=== PATIENT | male | born 1960 | race Caucasian/White ===

== ENCOUNTER 2023-09-13 07:42 | Emergency (ER) | payer OTHER, SELFPAY ==
[2023-09-13 08:00] VITALS: BP 171/102
--- NOTE | 2023-09-13 08:32 | ED.GENMED ---
History of Present Illness
General
Chief Complaint: Abdominal Pain
Source: patient
Exam Limitations: none
Time Seen by Provider: 09/13/23 08:13
Travel History
Have you had any contact with someone who has COVID-19?: No
Do you have any symptoms of coronavirus? Fever > 100 degrees, chills, cough, shortness of breath, sore throat, loss of taste or smell, muscle aches, or headache?: No
History of Present Illness
History of Present Illness:
See MDM
Past History
Past History
ED Past Medical History: Other (IBS)
ED Past Surgical History: Urological
Social History
Tobacco: Non-smoker
Alcohol: None
Drug: None
Personal:
Living: with family
Phy Exam
Physical Exam
Physical Exam:
See MDM
Course
Orders/Labs/Results
Orders:
Orders
09/13/23 08:29
CT Abd/pelvis W Iv Cont Urgent
Comment:
Reason For Exam: lower mid abd pain
09/13/23 08:32
Complete Blood Count/With Diff Urgent
Comprehensive Metabolic Panel Urgent
09/13/23 09:30
Urinalysis Reflex To Culture Urgent
Date Specimen was Collected: 09/13/23
Time Specimen was Collected: 09:27
Abnormal Lab Results
09/13/23 09/13/23
08:32 09:30
Lymphocytes % 18.8 L %
(20.5-51.1)
Glucose 131 H mg/dl
(70-99)
Urine Ketones 1+ A
(Negative)
09/13/23 08:32
09/13/23 08:32
Vital Signs
Initial and Last Documented VS:
Initial Vital Signs
Temp Pulse Resp BP Pulse Ox
98.0 F 103 20 171/102 96
09/13/23 08:00 09/13/23 08:00 09/13/23 08:00 09/13/23 08:00 09/13/23 08:00
Last Documented Vital Signs
Temp Pulse Resp BP Pulse Ox
98.0 F 103 20 171/102 96
09/13/23 08:00 09/13/23 08:00 09/13/23 08:00 09/13/23 08:00 09/13/23 08:00
MDM/Problems Addressed
Differential Diagnosis Includes:
HPI and MDM Narrative:
63-year-old male presenting with vague lower abdominal pain. Patient states symptoms have been going on for couple weeks. He saw his PCP and they ordered a CT scan but patient states he cannot get it done for several weeks. He is now noticing
mild pain in his testicles.
On exam, he is well-appearing nontoxic. No inguinal hernia palpated. He has incisional hernia in is umbilicus. He states he had recent prostatectomy a few months ago. He denies urinary symptoms
Physical exam
General: Well appearing and non-toxic
HEENT: protecting airway
Neck: appears supple
CV: No evidence of cyanosis
Resp: No accessory muscle use
Abd: Non-distended. Incisional umbilical hernia. No incarceration or strangulation
: No inguinal hernia or testicle mass palpated
Extremities: No deformities
Neuro: alert
Psych: Normal affect
Skin: Intact
Problems Addressed including Acute and Chronic Conditions affecting care:
1. Abdominal pain
Acuity: acute
Prognosis: stable
Details: Given ongoing symptoms, will obtain CT
Updates
CT negative for acute pathology. Discussed return precautions and follow-up with PCP. If symptoms persist, discussed follow-up with GI
Differential Diagnosis (but not limited to): Constipation, inguinal hernia, colitis
Testing considered: EKG
Drug therapy (if applicable): OTC meds, please see d/c instruction regarding Rx drugs
Amount and/or Complexity of Data Reviewed
Clinical info obtained from: Patient
External data reviewed: N/A
Labs I independently reviewed (but not limited to): LFTs within normal limits
Radiology: The CT scan was personally and independently reviewed. In addition, official CT report reviewed.
Pulse Ox: not hypoxic
EKG independently reviewed: N/A
Biomed Tech: N/A
Critical Care: N/A
Risk of Complication:
Social Determinants of health: Good social support
Discussed with other providers: N/A
Escalation of Care includes Admit/Obs: After being observed in the Emergency Department, pt stable for discharge.
Occasional wrong word or 'sound a like' substitutions may have occurred due to the inherent limitations of voice recognition software. Read the chart carefully and recognize, using context, where substitutions have occurred.
*Critical Care Note
Total Time (30-74mins, 75-104mins- exclusive of procedures): Not Applicable
ED Attending Note
-
Portions of this chart may have been created with voice recognition software.� Occasional wrong word or��sound alike� substitutions may have occurred due to the inherent limitations of voice recognition software.
Discharge Plan
Departure
Patient Disposition: Home (Routine Discharge)
Date of Disposition: 09/13/23
Time of Disposition: 10:12
Patient with high blood pressure during this ER visit?: Yes
Discharge Problem:
Abdominal pain
Instructions: Abdominal Pain, BLOOD PRESSURE
Prescriptions:
No Action
amlodipine 10 mg Tablet
10 mg PO DAILY
valsartan 320 mg Tablet
320 mg PO DAILY
rosuvastatin [Crestor] 10 mg Tablet
10 mg PO DAILY
naproxen sodium [Aleve] 220 mg tablet
440 mg PO BID PRN (Reason: pain) Qty: 1 0RF
tramadol 50 mg tablet
50 mg PO TID PRN (Reason: severe pain) Qty: 10 0RF
triamcinolone acetonide 0.1 % cream
1 applic topical BID 7 Days Qty: 30 0RF
methylprednisolone [Medrol ([place])] 4 mg tablets,dose pack
See Rx Instructions .ROUTE .COMPLEX Qty: 21 0RF
Rx Instructions:
orally per package directions
Referrals:
Adela Aguilar DO [Family Provider] -
Activity Restrictions/Additional Instructions:
Please return for any worsening symptoms.
You may return at any time if you have further concerns.
Please follow up with your doctor at the first available appointment, preferably this week.
Thank you for choosing [facility].
Interventions
Interventions:
*Risk Screen - Suicide Last Done: 09/13/23 08:24
*General Assessment Last Done: 09/13/23 08:24
*Neglect/Abuse Screening Last Done: 09/13/23 08:24
ED- Fall Risk Assessment Last Done: 09/13/23 08:24
*ED COVID-19 Vaccine History Last Done: 09/13/23 08:24
[facility]otmvqy[facility] Assessment Last Done: 09/13/23 08:24
Discharge Date and Time
Print Language: BURUNDIAN
[2023-09-13 08:39] LABS: % Basophils 0.6 % (0-2); % Eosinophils 0.5 % (0-6); % Immature Granulocytes 0.3 % (0-0.5); % Lymphocytes 18.8 % (20.5-51.1); % Neutrophils 72.8 % (42.2-75.2); Absolute Lymphocytes 1.2 10^3/uL (1.2-3.4); Absolute Monocytes 0.4 10^3/uL (0.1-0.6); Absolute Neutrophils 4.5 10^3/uL (1.4-6.5); Hematocrit 46.1 % (39.0-52.0); Hemoglobin 15.7 g/dL (13.0-18.0); Mean Corp Hgb Conc. 34.1 g/dL (33.0-37.0); Mean Corpuscular Hgb 29.6 pg (27.0-31.0); Mean Corpuscular Volume 86.8 fL (80.0-94.0); Mean Platelet Volume 9.9 fL (7.4-10.4); Nucleated Red Blood Cells % 0 % (-); Platelet Count 213 10^3/uL (130-400); Red Blood Cell Count 5.31 10^6/uL (4.70-6.10); Red Cell Dist. Width 12.8 % (11.5-14.5); White Blood Cell Count 6.2 10^3/uL (4.8-10.8)
[2023-09-13 09:00] LABS: ALT (SGPT) 21 U/L (0-50); AST (SGOT) 26 U/L (17-59); Albumin 4.4 g/dl (3.5-5.0); Alkaline Phosphatase 99 U/L (38-126); Blood Urea Nitrogen 12 mg/dl (9-20); Calcium 9.7 mg/dl (8.4-10.2); Carbon Dioxide 23 mmol/L (22-30); Chloride 107 mmol/L (98-107); Glucose 131 mg/dl (70-99); Potassium 3.8 mmol/L (3.5-5.1); Sodium 139 mmol/L (135-145); Total Bilirubin 1.2 mg/dl (0.2-1.3); Total Protein 7.1 g/dl (6.3-8.2); eGFR > 60.00
[2023-09-13 09:38] LABS: Urine Albumin Trace (Neg - Trace); Urine Bilirubin Negative (Negative); Urine Character Clear (Clear); Urine Color Yellow; Urine Glucose Negative (Negative); Urine Ketone 1+ (Negative); Urine Leukocyte Negative (Negative); Urine Nitrite Negative (Negative); Urine Occult Blood Negative (Negative); Urine Urobilinogen Negative (Neg - 1+)
== END 2023-09-13 10:31 | disposition home or self-care (01) ==
LOC: EMR 07:42
PROVIDERS: EMERGENCY PHYSICIAN Student in an Organized Health Care Education/Training Program; FAMILY PHYSICIAN Family Medicine
DX: R10.30 Lower abdominal pain, unspecified (principal); K43.2 Incisional hernia without obstruction or gangrene; I10 Essential (primary) hypertension
CPT/HCPCS: 99285; 74177; 80053; 81003; 85025; Q9967

== ENCOUNTER 2023-11-16 01:30 | Emergency (ER) | payer OTHER, SELFPAY ==
[2023-11-16 01:31] VITALS: BP 178/96
--- NOTE | 2023-11-16 01:47 | ED.GENMED ---
History of Present Illness
General
Chief Complaint: Skin Problem
Source: patient
Exam Limitations: none
Time Seen by Provider: 11/16/23 01:39
History of Present Illness
History of Present Illness:
This is a 63 year old male that comes in with c/o right lower leg pain. States that at 5pm he started with pain in the right lower leg. States that the pain just kept getting worse and worse and at 12 midnight he couldn't even get out of bed to get
to the BR. States that he did get to the BR and his son saw him and asked what was wrong. States that he bumped this area about 2 months ago but has not had any recent falls or injury. Denies any fever, chills, chest pain, SOB, abd pain, nausea,
vomiting, diarrhea, headache, dizziness, urinary burning.
Past History
Past History
ED Past Medical History: Cancer (Prostate CA), HTN, Hypercholesterolemia and Other (IBS)
ED Past Surgical History: Urological (Prostatectomy)
Social History
Tobacco: Non-smoker
Alcohol: None
Drug: None
Personal:
Living: with family
Review of Systems
Review of Systems
All Other Systems: ROS reviewed and negative except as documented in HPI and ROS
Constitutional: Reports no symptoms; Denies fever or chills
EENT: Reports no symptoms
Respiratory: Reports no symptoms; Denies cough or trouble breathing
Cardiac: Reports no symptoms; Denies chest pain
ABD/GI: Reports no symptoms; Denies abdominal pain, nausea, vomiting or diarrhea
: Reports no symptoms; Denies dysuria, frequency or urgency
Musculoskeletal: Reports other (right lower leg pain)
Skin: Reports other (Redness on the right medial aspect of the distal lower leg with increased warmth. )
Neurological: Reports no symptoms; Denies dizzy or headache
Psychiatric: Reports no symptoms
Phy Exam
General Physical Exam
General Presentation: well appearing and no apparent distress
General age: appears stated age
General Skin: warm and dry
General Habitus: normal
General Mental: alert
General Hydration: appears well hydrated
ENT Exam
ENT Exam: TM's normal, pharynx normal and neck supple
Eye Exam
Eye Exam: EOMI
Cardiovascular Exam
Cardiovascular Exam: regular rate/rhythm and normal peripheral pulses
Pulmonary Exam
Pulmonary Exam: lungs clear, no respiratory distress, no rales, chest non tender, no crackles, no rhonchi, no wheezing and no cough
Musculoskeletal Exam
Musculoskeletal Exam: full ROM and edema (Slight lower leg swelling nonpitting)
Skin Exam
Skin Exam: normal color, warm/dry, no petechia and redness (on the right distal lower medial aspect of the leg. Tender to palpation. Slight increased warmth. )
Psychiatric Exam
Psychiatric Exam: normal mood/affect
Course
Orders/Labs/Results
Orders:
Orders
11/16/23 01:47
US Legs, Right [US Periph Venous LOWER Ext RT] Urgent
Comment:
Reason For Exam: Right lower leg pain and redness
11/16/23 02:02
Complete Blood Count/With Diff Urgent
Comprehensive Metabolic Panel Urgent
Lactic Acid Urgent
Abnormal Lab Results
11/16/23
02:02
Absolute Neuts (auto) 8.1 H 10^3/uL
(1.4-6.5)
Absolute Monos (auto) 0.7 H 10^3/uL
(0.1-0.6)
Neutrophils % 78.3 H %
(42.2-75.2)
Lymphocytes % 13.1 L %
(20.5-51.1)
Chloride 108 H mmol/L
(98-107)
Glucose 119 H mg/dl
(70-99)
Total Protein 6.1 L g/dl
(6.3-8.2)
11/16/23 02:02
11/16/23 02:02
Glucose nonfasting. Total protein very slightly low. Lactic acid normal at 1.3
Vital Signs
Initial and Last Documented VS:
Initial Vital Signs
Temp Pulse Resp BP Pulse Ox
98 F 78 24 178/96 98
11/16/23 01:31 11/16/23 01:11/16/23 01:11/16/23 01:11/16/23 01:31
Last Documented Vital Signs
Temp Pulse Resp BP Pulse Ox
98 F 78 24 178/96 98
11/16/23 01:11/16/23 01:11/16/23 01:31 11/16/23 01:31 11/16/23 01:31
MDM/Problems Addressed
Differential Diagnosis Includes:
DVT, Cellulitis,
MDM/Problems Addressed:
This is a 63 year old male that comes in with c/o right lower leg pain. States that this started at 5pm and has continued to get worse. States that by midnight he could hardly get OOB.
Will check labs and US.
Back into see patient. Explained that his blood work shows that his Lactic acid is normal and he has normal WBC's. this is an early cellulitis. Will start patient on antibiotics and sent a prescription to his pharmacy. Will give patient off today.
Follow up with the family doctor. Return with increased redness, fever, swelling or any other concerns .
Chronic conditions affecting care:
NA
Acute Exacerbation and/or Progression of Chronic Illness:
NA
*Radiology
Radiology exam reviewed: other (Us- negative for DVT)
*Pulse Oximetry
Patient hypoxic: no
*EKG
Interpreted by ED Provider?: NA
Rate: EKG- N/A
*Gaggerman Interpretation
Rate: Gaggerman- N/A
*Critical Care Note
Total Time (30-74mins, 75-104mins- exclusive of procedures): Not Applicable
ED Attending Note
-
Portions of this chart may have been created with voice recognition software.� Occasional wrong word or��sound alike� substitutions may have occurred due to the inherent limitations of voice recognition software.
Discharge Plan
Departure
Patient Disposition: Home (Routine Discharge)
Date of Disposition: 11/16/23
Time of Disposition: 03:46
Patient with high blood pressure during this ER visit?: Yes
Condition: Good
Covid-19: Not Applicable
Discharge Problem:
Leg pain, right, Cellulitis of right lower leg
Instructions: Cellulitis (Skin Infection), Adult (DC), BLOOD PRESSURE
Prescriptions:
New
doxycycline hyclate 100 mg capsule
100 mg PO BID Qty: 19 0RF
No Action
amlodipine 10 mg Tablet
10 mg PO DAILY
valsartan 320 mg Tablet
320 mg PO DAILY
rosuvastatin [Crestor] 10 mg Tablet
10 mg PO DAILY
naproxen sodium [Aleve] 220 mg tablet
440 mg PO BID PRN (Reason: pain) Qty: 1 0RF
tramadol 50 mg tablet
50 mg PO TID PRN (Reason: severe pain) Qty: 10 0RF
triamcinolone acetonide 0.1 % cream
1 applic topical BID 7 Days Qty: 30 0RF
methylprednisolone [Medrol ([place])] 4 mg tablets,dose pack
See Rx Instructions .ROUTE .COMPLEX Qty: 21 0RF
Rx Instructions:
orally per package directions
Referrals:
Dorian Dennis PA [Family Provider] - Follow up in 2-3 days
Activity Restrictions/Additional Instructions:
As discussed, your blood work shows your lactic acid is normal along with your white blood cell count. Your Glucose is nonfasting. Your US is negative for DVT. This is most likely an early Cellulitis. You have been given your first dose of
antibiotic here and a prescription has been sent to your pharmacy. You may also use Tylenol 1000mg every 6 hours for pain and alternate with Ibuprofen 600mg every 6 hours with food. Follow up with the family doctor for recheck in the next 2-3 days.
IF YOU HAVE INCREASED PAIN, REDNESS, SWELLING OR YOU HAVE ANY OTHER CONCERNS PLEASE RETURN TO THE EMERGENCY ROOM.
Interventions
Interventions:
*Risk Screen - Suicide Last Done: 11/16/23 01:31
*Neglect/Abuse Screening Last Done: 11/16/23 01:31
Discharge Date and Time
Print Language: IRAQI
[2023-11-16 02:34] LABS: % Basophils 0.5 % (0-2); % Eosinophils 0.7 % (0-6); % Immature Granulocytes 0.3 % (0-0.5); % Lymphocytes 13.1 % (20.5-51.1); % Monocytes 7.1 % (1.7-9.3); % Neutrophils 78.3 % (42.2-75.2); Absolute Basophils 0.1 10^3/uL (0-0.2); Absolute Eosinophils 0.1 10^3/uL (0-0.7); Absolute Lymphocytes 1.4 10^3/uL (1.2-3.4); Absolute Monocytes 0.7 10^3/uL (0.1-0.6); Absolute Neutrophils 8.1 10^3/uL (1.4-6.5); Hematocrit 40.2 % (39.0-52.0); Mean Corp Hgb Conc. 34.8 g/dL (33.0-37.0); Mean Corpuscular Hgb 29.8 pg (27.0-31.0); Mean Corpuscular Volume 85.5 fL (80.0-94.0); Mean Platelet Volume 10.2 fL (7.4-10.4); Nucleated Red Blood Cells % 0 % (-); Platelet Count 161 10^3/uL (130-400); Red Cell Dist. Width 13.5 % (11.5-14.5); White Blood Cell Count 10.3 10^3/uL (4.8-10.8)
[2023-11-16 02:47] LABS: Lactic Acid 1.3 mmol/L (0.7-2.0)
[2023-11-16 02:49] LABS: ALT (SGPT) 22 U/L (0-50); AST (SGOT) 25 U/L (17-59); Albumin 3.7 g/dl (3.5-5.0); Alkaline Phosphatase 97 U/L (38-126); Blood Urea Nitrogen 18 mg/dl (9-20); Calcium 8.9 mg/dl (8.4-10.2); Carbon Dioxide 23 mmol/L (22-30); Chloride 108 mmol/L (98-107); Glucose 119 mg/dl (70-99); Sodium 140 mmol/L (135-145); Total Bilirubin 0.7 mg/dl (0.2-1.3); Total Protein 6.1 g/dl (6.3-8.2); eGFR > 60.00
[2023-11-16 03:47] VITALS: BP 171/78
[2023-11-16] MEDS: VIBRAMYCIN 100 MG PO (03:55)
[2023-11-16] MEDS: TORADOL 30 MG IV (03:55)
== END 2023-11-16 04:00 | disposition home or self-care (01) ==
LOC: EMR 01:30
PROVIDERS: Clinical Nurse Specialist Family Health; EMERGENCY PHYSICIAN Student in an Organized Health Care Education/Training Program; FAMILY PHYSICIAN Physician Assistant Medical
DX: L03.115 Cellulitis of right lower limb (principal); I10 Essential (primary) hypertension; E78.00 Pure hypercholesterolemia, unspecified; K58.9 Irritable bowel syndrome, unspecified; Z85.46 Personal history of malignant neoplasm of prostate; Z90.79 Acquired absence of other genital organ(s)
CPT/HCPCS: 99284; 96374; 80053; 83605; 85025; 93971

== ENCOUNTER 2023-11-20 15:08 | Inpatient (IN) | payer OTHER, SELFPAY ==
[2023-11-20] VITALS (7 sets, daily range): BP systolic 121–174; BP diastolic 61–102; BMI 41.0; BMI 39.9
--- NOTE | 2023-11-20 09:07 | ED.SKININJ ---
HPI-Injury
General
Chief Complaint: Skin Problem
Source: patient
Exam Limitations: none
Time Seen by Provider: 11/20/23 08:40
History of Present Illness-Injury
Initial Injury comments:
63-year-old male presents with worsening redness swelling and pain to the right lower extremity. He was here 5 days ago and diagnosed with cellulitis. Ultrasound of his leg was negative that time for DVT. He was started on doxycycline. Took this
for 2 days and he noted worsening symptoms. He followed up with his family doctor. They started him on Bactrim and Keflex and stop his doxycycline. He has had this for 3 full days and notes worsening symptoms. He notes no chills or sweats. He
is not a diabetic. He is treated for hypertension. He notes 2 months ago he bumped his cardenas in the same area that this infection started. There was no open wound at the time. No chance of foreign body at the time.
Past History
Past History
ED Past Medical History: Cancer (Prostate CA), HTN, Hypercholesterolemia and Other (IBS)
ED Past Surgical History: Urological (Prostatectomy)
Social History
Tobacco: Non-smoker
Alcohol: None
Drug: None
Personal:
Living: with family
Phy Exam
Physical Exam
Physical Exam:
General: Well-appearing male no acute respiratory distress
HEENT: Normocephalic atraumatic
Heart: Regular rate and rhythm no murmurs
Lungs: Clear no wheeze
Skin: Erythema and induration and tenderness diffusely about the anterior right cardenas centered over the distal anterior right cardenas. Erythema spreads just inferior to the right knee. Right knee is without effusion has good range of motion. The
right ankle is good range of
Vascular: 2+ dorsalis pedis pulse right foot
Course
Orders/Labs/Results
Orders:
Orders
11/20/23 08:56
CR Leg Tibia/fibula Right 2 Vw Urgent
Comment:
Reason For Exam: pain anterior cardenas,
11/20/23 09:15
Complete Blood Count/With Diff Urgent
Comprehensive Metabolic Panel Urgent
Blood Culture Q30M
CAITIE Source: Blood/Venous
Specimen Description:
Blood Culture Q30M
CAITIE Source: Blood/Venous
Specimen Description:
11/20/23 12:00
VANCOMYCIN Pharmacy to Dose [VANCOCIN Pharmacy to Dose] 1 each Pharmacy To Prepare [Call Pharmacy To Prepare] 0 ml IV PER PROTOCOL
Abnormal Lab Results
11/20/23
09:15
Absolute Lymphs (auto) 1.1 L 10^3/uL
(1.2-3.4)
Immature Gran % 0.6 H %
(0-0.5)
Neutrophils % 75.9 H %
(42.2-75.2)
Lymphocytes % 14.9 L %
(20.5-51.1)
Chloride 109 H mmol/L
(98-107)
BUN 21 H mg/dl
(9-20)
Glucose 104 H mg/dl
(70-99)
11/20/23 09:15
11/20/23 09:15
Vital Signs
Initial and Last Documented VS:
Initial Vital Signs
Temp Pulse Resp BP Pulse Ox
98.1 F 81 18 174/92 98
11/20/23 08:08 11/20/23 08:08 11/20/23 08:08 11/20/23 08:08 11/20/23 08:08
Last Documented Vital Signs
Temp Pulse Resp BP Pulse Ox
98.1 F 81 18 174/92 98
11/20/23 08:08 11/20/23 08:08 11/20/23 08:08 11/20/23 08:08 11/20/23 08:08
MDM/Problems Addressed
Differential Diagnosis Includes:
Pain erythema and swelling to right leg. Negative DVT study 5 days ago. Suspect worsening cellulitis. No palpable abscess. History not consistent with potential foreign body. X-ray right cardenas pending. Will check labs. Patient is feeling
outpatient antibiotics now on 2 different regimens. Will likely need IV antibiotic
*Critical Care Note
Total Time (30-74mins, 75-104mins- exclusive of procedures): Not Applicable
Update Note
Update Note:
X-ray negative for acute finding. Labs reviewed without significant finding. Patient has failed 2 different outpatient regimens of antibiotics. Will start vancomycin and admit to hospital for cellulitis
ED Attending Note
-
Portions of this chart may have been created with voice recognition software.� Occasional wrong word or��sound alike� substitutions may have occurred due to the inherent limitations of voice recognition software.
Discharge Plan
Departure
Patient Disposition: Admit
Date of Disposition: 11/20/23
Time of Disposition: 11:12
Admit to: Telemetry
Presentation/result/management discussed w/ accepting MD/DO: Hospitalist
Discharge Problem:
Cellulitis
Prescriptions:
No Action
amlodipine 10 mg Tablet
10 mg PO DAILY
valsartan 320 mg Tablet
320 mg PO DAILY
sulfamethoxazole-trimethoprim [Bactrim DS] 800-160 mg Tablet
1 tab PO BID
Patient Comments:
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
cephalexin 500 mg Capsule
500 mg PO QID
rosuvastatin [Crestor] 10 mg Tablet
10 mg PO DAILY
Visbiome 112.5 billion cell Capsule
1 cap PO DAILY
dexlansoprazole 30 mg Capsule,Biphase Delayed Releas
30 mg PO DAILY
Referrals:
Dorian Dennis PA [Family Provider] -
Interventions
Interventions:
*Risk Screen - Suicide Last Done: 11/20/23 09:17
*General Assessment Last Done: 11/20/23 09:17
*Neglect/Abuse Screening Last Done: 11/20/23 09:17
*ED COVID-19 Vaccine History Last Done: 11/20/23 09:17
ED-Skin Assessment Last Done: 11/20/23 09:48
Discharge Date and Time
Print Language: FIJIAN
[2023-11-20 09:29] LABS: % Basophils 0.6 % (0-2); % Eosinophils 0.8 % (0-6); % Immature Granulocytes 0.6 % (0-0.5); % Lymphocytes 14.9 % (20.5-51.1); % Monocytes 7.2 % (1.7-9.3); % Neutrophils 75.9 % (42.2-75.2); Absolute Eosinophils 0.1 10^3/uL (0-0.7); Absolute Lymphocytes 1.1 10^3/uL (1.2-3.4); Absolute Monocytes 0.5 10^3/uL (0.1-0.6); Absolute Neutrophils 5.5 10^3/uL (1.4-6.5); Hematocrit 42.2 % (39.0-52.0); Hemoglobin 14.1 g/dL (13.0-18.0); Mean Corp Hgb Conc. 33.4 g/dL (33.0-37.0); Mean Corpuscular Hgb 29.4 pg (27.0-31.0); Mean Corpuscular Volume 88.1 fL (80.0-94.0); Mean Platelet Volume 9.8 fL (7.4-10.4); Nucleated Red Blood Cells % 0 % (-); Platelet Count 219 10^3/uL (130-400); Red Blood Cell Count 4.79 10^6/uL (4.70-6.10); Red Cell Dist. Width 13.6 % (11.5-14.5); White Blood Cell Count 7.2 10^3/uL (4.8-10.8)
[2023-11-20 09:42] LABS: ALT (SGPT) 24 U/L (0-50); AST (SGOT) 23 U/L (17-59); Albumin 3.9 g/dl (3.5-5.0); Alkaline Phosphatase 87 U/L (38-126); Blood Urea Nitrogen 21 mg/dl (9-20); Calcium 9.4 mg/dl (8.4-10.2); Carbon Dioxide 23 mmol/L (22-30); Chloride 109 mmol/L (98-107); Estimated Creatinine Clearance 124 ml/min; Glucose 104 mg/dl (70-99); Potassium 4.2 mmol/L (3.5-5.1); Sodium 141 mmol/L (135-145); Total Bilirubin 0.7 mg/dl (0.2-1.3); Total Protein 6.7 g/dl (6.3-8.2); eGFR > 60.00
--- NOTE | 2023-11-20 11:17 | HPS.HSE ---
Family Physician
-
Family Physician: RANDELL Obrien
Chief Complaint
-
Right Lower Ext Erythema
History of Present Illness
63 male history hypertension hyperlipidemia GERD obesity prostate cancer status post prostatectomy presents for evaluation right lower extremity erythema tenderness progressively worsening over the past 5 days. Patient reports noting a lesion there
a month ago when he accidentally bumped it resulting in bruising. Evaluated in ED with venous duplex negative for clot. Patient was prescribed oral antibiotic at discharge. Erythema however continue to worsen prompting patient to follow-up with
his primary care doctor who switched your antibiotic. Erythema tenderness continue to worsen prompting patient's current visit to the ED. Vital signs stable labs unremarkable. X-ray noted no acute acute fracture dislocation foreign bodies or
overt evidence of osteomyelitis.
Medical History
Past Medical History
Past Medical History: Reports Other (As above)
Past Surgical History: Reports Other (As above)
Social History
Tobacco: Non-smoker
Drug: None
Personal:
Living: With Family
Employment: Employed
Family History
Family History: Not pertinent (Reviewed)
Allergies / Home Medications
Allergies reflects when Allergies were last updated in [facility].
Home Medications with original date entered in [facility]
Allergy/Medication List:
Allergies
Allergy/AdvReac Type Severity Reaction Status Date / Time
Penicillins Allergy Rash as a Verified 11/20/23 09:46
child-
tolerates
cephalexin
and
amoxicillin
Home Medications
amlodipine 10 mg tablet 10 mg PO DAILY 01/20/22
valsartan 320 mg tablet 320 mg PO DAILY 01/20/22
Lactobac no.2-Bifidobac no.1-S. thermo 112.5 billion cell capsule (Visbiome) 1 cap PO DAILY 11/20/23
cephalexin 500 mg capsule 500 mg PO QID 11/20/23
dexlansoprazole 30 mg capsule,biphase delayed release 30 mg PO DAILY 11/20/23
rosuvastatin 10 mg tablet 10 mg PO DAILY 11/20/23
sulfamethoxazole 800 mg-trimethoprim 160 mg tablet (Bactrim DS) 1 tab PO BID 11/20/23
Review of Systems
-
A 12 point ROS was completed and negative except as noted: Yes
Constitutional: Reports Other (as below)
Physical Exam
Vital Signs
Vital Signs
Temp Pulse Resp BP Pulse Ox
98.1 F 81 18 174/92 98
11/20/23 08:08 11/20/23 08:08 11/20/23 08:08 11/20/23 08:08 11/20/23 08:08
Physical Exam
General: Other (as below)
Laboratory Results
-
11/20/23 09:15
11/20/23 09:15
Laboratory Results
Total Bilirubin 0.7 mg/dl (0.2-1.3) 11/20/23 09:15
AST 23 U/L (17-59) 11/20/23 09:15
ALT 24 U/L (0-50) 11/20/23 09:15
Alkaline Phosphatase 87 U/L (38-126) 11/20/23 09:15
Impression/Plan
-
ROS
General: Reports intermittent fever denies chills night sweats unexpected weight loss
Neuro: Denies seizure shaking loss of consciousness dizziness vertigo
Psych: denies depression hallucinations confusion manic episodes
Endocrine: Denies polyuria polydipsia polyphagia heat/cold intolerance
HEENT: Denies blindness visual disturbances epistaxis
Pulmonary: denies coughing hemoptysis sneezing sob dyspnea on exertion
Cardiovascular: denies chest pain palpitations leg swelling
Hematology: denies signs symptoms of anemia easy bruising/bleeding
Gastrointestinal: denies nausea vomiting diarrhea constipation hematemesis hematochezia melena
Genito-Urinary: denies retention incontinence dysuria
Musculoskeletal: denies joint pain weakness
Dermatology: RLE swelling erythema tenderness
Physical Exam
General: No pallor, cyanosis, or jaundice. Obese
HEENT: Throat clear. PERRLA Normocephalic atraumatic
NECK: Supple. No JVD Carotid Bruits
RESPIRATORY: Lungs clear to auscultation. No crackles wheezes stridor
CVS: S1, S2 normal. RRR. No murmur, rub or gallop.
ABDOMEN: Soft, non-tender. No distension. BS+/normal.
EXTREMITIES: RLE swelling erythema tenderness
RESIDENTIAL SALES REP: AOx3. No focal deficits.
IMPRESSION:
63 male history hypertension hyperlipidemia GERD morbid obesity prostate cancer status post prostatectomy presents for evaluation right lower extremity erythema tenderness progressively worsening over the past 5 days. Patient reports noting a
lesion there a month ago when he accidentally bumped it resulting in bruising. Evaluated in ED with venous duplex negative for clot. Patient was prescribed oral antibiotic at discharge. Erythema however continue to worsen prompting patient to
follow-up with his primary care doctor who switched your antibiotic. Erythema tenderness continue to worsen prompting patient's current visit to the ED. Vital signs stable labs unremarkable. X-ray noted no acute acute fracture dislocation foreign
bodies or overt evidence of osteomyelitis. Admitted for treatment severe RLE cellulitis failed outpt treatment.
PLAN:
#RLE cellulitis failed outpt tx
Med/Surg admit
empiric Vanc Cefazolin
MRSA screen
check Soft tissue US
Venous duplex RLE 11/15 neg for DVT
XR RLE 11/19 appreciated no acute fx dislocation foreign body, no overt evidence osteo
Tylenol prn
follow blood cultures
#HTN
cont home Amlodipine Valsartan w/ holding paramters
#HLD
cont home statin
#GERD
cont home PPI
#Morbid Obesity
dvt ppx lovenox
gi ppx protonix
Full Code
I spent a total of 76 minutes with the patient or on the floor. More than 50% of this time involved counseling and coordination of care.
[2023-11-20] MEDS: VANCOCIN 540 MG IV (11:32)
--- NOTE | 2023-11-20 16:20 | PHA.VAN.IN ---
Assessment
- Assessment
Renal Function: Appears similar to baseline
Concomitant Antimicrobials: ANCEF
Pharmacokinetics Vancomycin I
- -
Patient Age: 63
Patient Sex: Male
Vancomycin Day #: 1
Indication: Skin And Soft Tissue (RLE CELLULITIS)
Requesting Provider: DENA
Pertinent Antimicrobial Allergies:
Allergies
Penicillins Allergy (Verified 11/20/23 09:46)
Rash as a child- tolerates cephalexin and amoxicillin
Height / Weight:
Height 6 ft
Actual Weight 133.47 kg
Pertinent Past Medical History: FAILED OUTPT TX
- Vital Signs / Lab Results
Temp Pulse Resp BP Pulse Ox
98.5 F 83 20 153/82 98
11/20/23 15:59 11/20/23 15:59 11/20/23 15:59 11/20/23 15:59 11/20/23 15:59
Lab Results - Hematology
11/20/23
09:15
WBC 7.2
Lab Results - Chemistry
11/20/23
09:15
BUN 21 H
Creatinine 0.9
Estimated Creat Clear 124
Albumin 3.9
[2023-11-20] MEDS: ANCEF 10 IV ×2 (16:33→23:46)
[2023-11-20] MEDS: LOVENOX 40 MG SC (17:34)
[2023-11-21] MEDS: VANCOCIN 300 MG IV ×2 (06:24→17:13)
[2023-11-21] MEDS: VANCOCIN 300 ML IV ×2 (06:24→17:13)
--- NOTE | 2023-11-21 07:10 | W.PN.HOSP.TC ---
Today's Communication/Plan
-
cont abx cefazolin
discontinue vancomycin, MRSA screen neg
follow cultures
Surgery eval
Assessment / Plan
Assessment / Plan
Physical Exam
General: No pallor, cyanosis, or jaundice. Obese
HEENT: Throat clear. PERRLA Normocephalic atraumatic
NECK: Supple. No JVD Carotid Bruits
RESPIRATORY: Lungs clear to auscultation. No crackles wheezes stridor
CVS: S1, S2 normal. RRR. No murmur, rub or gallop.
ABDOMEN: Soft, non-tender. No distension. BS+/normal.
EXTREMITIES: RLE swelling erythema tenderness
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 No focal deficits.
IMPRESSION:
63 male history hypertension hyperlipidemia GERD morbid obesity prostate cancer status post prostatectomy presents for evaluation right lower extremity erythema tenderness progressively worsening over the past 5 days. Patient reports noting a
lesion there a month ago when he accidentally bumped it resulting in bruising. Evaluated in ED with venous duplex negative for clot. Patient was prescribed oral antibiotic at discharge. Erythema however continue to worsen prompting patient to
follow-up with his primary care doctor who switched your antibiotic. Erythema tenderness continue to worsen prompting patient's current visit to the ED. Vital signs stable labs unremarkable. X-ray noted no acute acute fracture dislocation foreign
bodies or overt evidence of osteomyelitis. Admitted for treatment severe RLE cellulitis failed outpt treatment.
PLAN:
#RLE cellulitis failed outpt tx
cont Cefazolin
MRSA screen neg, empiric vanc discontinued
Soft tissue US notes approx 3x3x3 cm collection, Surgery eval requested
Venous duplex RLE 11/15 neg for DVT
XR RLE 11/19 appreciated no acute fx dislocation foreign body, no overt evidence osteo
Tylenol prn
follow blood cultures NGTD
#HTN
cont home Amlodipine Valsartan w/ holding paramters
#HLD
cont home statin
#GERD
cont home PPI
#Morbid Obesity
dvt ppx lovenox
gi ppx protonix
Full Code
I spent a total of 55 minutes with the patient or on the floor. More than 50% of this time involved counseling and coordination of care.
Anticipated Discharge: 24 - 48 hours
Subjective/Interval History
-
Date of Service: November 21, 2023
Seen and examined at bedside in no acute distress sitting up comfortably in bed . Reports overall feeling well. Notes some improvement in lower ext right cellulitis erythema swelling.
Objective Data
-
Labs:
Laboratory Results
11/21/23
06:44
WBC Pending
Hgb Pending
Hct Pending
Plt Count Pending
Sodium Pending
Potassium Pending
Chloride Pending
Carbon Dioxide Pending
BUN Pending
Creatinine Pending
Glucose Pending
Calcium Pending
Vital Signs:
Vital Signs
Temp Pulse Resp BP Pulse Ox
98.0 F 75 20 121/61 95
11/20/23 23:38 11/20/23 23:38 11/20/23 23:38 11/20/23 23:38 11/20/23 23:38
I&O
11/20/23 11/21/23 11/22/23
06:59 06:59 06:59
Intake Total 480 / 480
Output Total 150 / 150
Balance 330 / 330
[2023-11-21 07:22] VITALS: BP 135/78
[2023-11-21 07:35] LABS: % Basophils 0.5 % (0-2); % Eosinophils 1.6 % (0-6); % Immature Granulocytes 0.5 % (0-0.5); % Monocytes 9.1 % (1.7-9.3); % Neutrophils 71.3 % (42.2-75.2); Absolute Eosinophils 0.1 10^3/uL (0-0.7); Absolute Monocytes 0.5 10^3/uL (0.1-0.6); Absolute Neutrophils 4.1 10^3/uL (1.4-6.5); Hemoglobin 13.2 g/dL (13.0-18.0); Mean Corp Hgb Conc. 33.8 g/dL (33.0-37.0); Mean Corpuscular Hgb 29.7 pg (27.0-31.0); Mean Corpuscular Volume 87.8 fL (80.0-94.0); Mean Platelet Volume 9.8 fL (7.4-10.4); Nucleated Red Blood Cells % 0 % (-); Platelet Count 197 10^3/uL (130-400); Red Blood Cell Count 4.44 10^6/uL (4.70-6.10); Red Cell Dist. Width 13.6 % (11.5-14.5); White Blood Cell Count 5.7 10^3/uL (4.8-10.8)
[2023-11-21 07:45] LABS: Blood Urea Nitrogen 14 mg/dl (9-20); Calcium 9.1 mg/dl (8.4-10.2); Carbon Dioxide 24 mmol/L (22-30); Chloride 108 mmol/L (98-107); Estimated Creatinine Clearance 122 ml/min; Glucose 98 mg/dl (70-99); Magnesium 2.1 mg/dl (1.6-2.3); Potassium 4.3 mmol/L (3.5-5.1); Sodium 141 mmol/L (135-145); eGFR > 60.00
[2023-11-21] MEDS: PROTONIX 40 MG PO (08:36)
[2023-11-21] MEDS: DIOVAN 320 MG PO (08:36)
[2023-11-21] MEDS: NORVASC 10 MG PO (08:37)
[2023-11-21] MEDS: VISBIOME 1 CAP PO (08:37)
[2023-11-21] MEDS: CRESTOR 10 MG PO (08:37)
[2023-11-21] MEDS: ANCEF 10 IV ×3 (08:37→23:00)
--- NOTE | 2023-11-21 11:14 | PHA.VAN.FU ---
Vancomycin Assessment / Plan
- Assessment
Renal Function: Stable
WBC's are: WNL
In the past 24 hrs, patient has been: Afebrile
Concomitant Antimicrobials: cefazolin
- Dosing Plan
Continue: vancomycin 1500 mg q12h - first dose 11/20 0600 after 2 g LD
- Monitoring Plan
No level(s) ordered at this time: consider levels after 4th main. dose Thursday dylon
- Follow Up
Pharmacy will continue to follow.
Vancomycin Follow UP
- -
Patient Age: 63
Patient Sex: Male
Vancomycin Day #: 2
Indication: Skin And Soft Tissue (RLE CELLULITIS)
Requesting Provider: DENA
Pertinent Antimicrobial Allergies:
Allergies
Penicillins Allergy (Verified 11/20/23 09:46)
Rash as a child- tolerates cephalexin and amoxicillin
Height / Weight:
Height 6 ft
Actual Weight 133.47 kg
Pertinent Past Medical History: FAILED OUTPT TX; BMI~ 40; prostate cancer
- Vital Signs / Lab Results
Temp Pulse Resp BP Pulse Ox
98.2 F 69 20 135/78 97
11/21/23 07:22 11/21/23 07:22 11/21/23 07:22 11/21/23 07:22 11/21/23 07:22
Lab Results - Hematology
11/20/23 11/21/23
09:15 06:44
WBC 7.2 5.7
Lab Results - Chemistry
11/20/23 11/21/23
09:15 06:44
BUN 21 H 14
Creatinine 0.9 0.9
Estimated Creat Clear 124 122
Albumin 3.9
Microbiology Results
11/20/23 09:15 Blood Culture - Preliminary
Blood/Venous No Growth in 24 hours- Final report to follow
11/20/23 09:15 Blood Culture - Preliminary
Blood/Venous No Growth in 24 hours- Final report to follow
--- NOTE | 2023-11-21 11:38 | CM ---
Patient seen bedside, initial assessment completed. Patient resides with spouse in a multiple story home, five steps to enter. Patient denies DME in the home, VN, or SNF, is independent with ADLS/IADLS. Patient PCP Dorian Dennis, pharmacy used [facility]
[place], confirms prescription coverage. Patient denies food insecurities at home. CM will continue to follow for all discharge planning needs.
Plan; home no needs anticipated.
--- NOTE | 2023-11-21 13:40 | CON.GS ---
Addendum entered and electronically signed by Ashkan Parra MD 11/21/23 16:02:
CT reviewed. No abscess. Suggest ID input.
Addendum entered and electronically signed by Ashkan Parra MD 11/21/23 15:49:
I saw and examined the patient.
The PEDIATRIC NURSE's note was reviewed and I agree with the note.
Comment:
History, vitals, labs, imaging reviewed. Patient seen and examined.
63 yo M with R LE cellulitis with concern for abscess on US. Certainly with erythema but no obvious fluctuance nor crepitus on exam. CT ordered to further clarify This revealed no abscess. Recommend just antibiotics.
Thanks.
Original Note:
Medical History
-
Chief Complaint: erythema to right leg
History of Present Illness:
Mr. Madison is a 63 yo male no h/o DM or PAD who presents with erythema to the right lower extremity. He notes striking his leg about 1 month ago with some minimal bruising at the time but no significant injury. Initially, he noted no skin changes
but about 1 week ago, his leg became red and hot to the touch. He presented through the ED on 11/19 for evaluation. Duplex at that time without DVT present. He was given a prescription for doxycycline but noted no improvement after 2 days and
followed up with his PCP who gave him both Keflex and Bactrim PO without much benefit. He presented through the ED once again and was admitted for IV antibiotics. He reports pain to touch with erythema noted on exam beginning just below the knee to
the ankle, dependent edema is present. Pulses are strong. There is a small area of crusted skin medial of the mid tibial area with surrounding induration but no fluctuance is palpable. He denies fevers or chills.
Past Medical History
Past Medical History: Cancer (prostate), GERD, HTN and Hypercholesterolemia
Past Surgical History: Urological (prostatectomy)
Social History
Tobacco: Non-Smoker
Alcohol: None
Family History
Family History: Reviewed & Not Pertinent
Allergies / Home Medications
Allergy/AdvReac Type Severity Reaction Status Date / Time
Penicillins Allergy Rash as a Verified 11/20/23 09:46
child-
tolerates
cephalexin
and
amoxicillin
�Medication �Instructions �Recorded �Confirmed �Type
amlodipine 10 mg tablet 10 mg PO DAILY 01/20/22 11/20/23 History
valsartan 320 mg tablet 320 mg PO DAILY 01/20/22 11/20/23 History
Lactobac no.2-Bifidobac no.1-S. 1 cap PO DAILY 11/20/23 11/20/23 History
thermo 112.5 billion cell capsule
(Visbiome)
cephalexin 500 mg capsule 500 mg PO QID 11/20/23 11/20/23 History
dexlansoprazole 30 mg 30 mg PO DAILY 11/20/23 11/20/23 History
capsule,biphase delayed release
rosuvastatin 10 mg tablet 10 mg PO DAILY 11/20/23 11/20/23 History
sulfamethoxazole 800 1 tab PO BID 11/20/23 11/20/23 History
mg-trimethoprim 160 mg tablet
(Bactrim DS)
Review of Systems
-
History Source: Patient and Family
All other systems: Negative unless noted
A 10 point review of systems was completed, and was negative except as per HPI.
Physical Exam
Vital Signs
Temp Pulse Resp BP Pulse Ox
98.2 F 69 20 135/78 97
11/21/23 07:22 11/21/23 07:22 11/21/23 07:22 11/21/23 07:22 11/21/23 07:22
11/20/23 11/21/23 11/22/23
06:59 06:59 06:59
Actual Weight 133.47 kg
Body Mass Index (BMI) 39.9
Lab Results
11/21/23 06:44
11/21/23 06:44
WBC 5.7 10^3/uL (4.8-10.8) 11/21/23 06:44
Hgb 13.2 g/dL (13.0-18.0) 11/21/23 06:44
Hct 39.0 % (39.0-52.0) 11/21/23 06:44
Plt Count 197 10^3/uL (130-400) 11/21/23 06:44
Abs Immat Gran (auto) 0.0 10^3/uL (0-0.05) 11/21/23 06:44
Neutrophils % 71.3 % (42.2-75.2) 11/21/23 06:44
Physical Exam
General: Well Developed and Well Nourished
HEENT: Moist Mucous Membranes
Respiratory: Non Labored Respirations
Cardiac: Peripheral Edema (rle knee to foot) and Other (strong pulses to RLE)
GI: Soft and Non Tender
Skin: Warm, Dry and Other (erythema to the RLE below the knee to the ankle with edema and area of induration medial of the mid tibia but without fluctuance)
Neuro: Awake, Alert and AO x 3
Psych: Calm
Data Reviewed
-
Radiology: Image Personally Visualized and interpreted, Discussed with Nurse and Discussed with Patient
Ultrasound: Image Personally Visualized and interpreted, Report Reviewed by me, Discussed with Physician, Discussed with Nurse and Discussed with Patient
Labs: Labs Reviewed by me, Discussed with Physician and Discussed with Patient
Old Records: Reviewed
Assessment / Plan
-
Mr. Madison is a 63 yo male no h/o DM or PAD. who presents with erythema to the right lower extremity which has failed OP oral antibiotics of doxycycline (x2days), and bactrim/keflex combination (x2days). Duplex on initial evaluation without DVT.
XR without fracture, moderate calcaneal enthesopathy present and diffuse sq edema. US this admission with a poorly defined possible 3x3 cm collection. Significant erythema and edema present with some crusting to the skin on exam but no area of
fluctuance or palpable abscess on exam. Strong pulses. Afebrile, VSS. No leukocytosis.
--Check CT of the LLE. If abscess present, plan I&D in the OR vs @bedside pending location
--IV abx as per primary team
--Check A1c in AM, follow CBC
[2023-11-21 15:38] VITALS: BP 135/85
[2023-11-21] MEDS: LOVENOX 40 MG SC (17:13)
[2023-11-21 23:20] VITALS: BP 147/86
--- NOTE | 2023-11-22 06:31 | W.PN.HOSP.TC ---
Today's Communication/Plan
-
cont IV abx
MINDA compressive wrap
blood pressure control
Assessment / Plan
Assessment / Plan
Physical Exam
General: No pallor, cyanosis, or jaundice. Obese
HEENT: Throat clear. PERRLA Normocephalic atraumatic
NECK: Supple. No JVD Carotid Bruits
RESPIRATORY: Lungs clear to auscultation. No crackles wheezes stridor
CVS: S1, S2 normal. RRR. No murmur, rub or gallop.
ABDOMEN: Soft, non-tender. No distension. BS+/normal.
EXTREMITIES: RLE swelling erythema tenderness appears improved
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 No focal deficits.
IMPRESSION:
63 male history hypertension hyperlipidemia GERD morbid obesity prostate cancer status post prostatectomy presents for evaluation right lower extremity erythema tenderness progressively worsening over the past 5 days. Patient reports noting a
lesion there a month ago when he accidentally bumped it resulting in bruising. Evaluated in ED with venous duplex negative for clot. Patient was prescribed oral antibiotic at discharge. Erythema however continue to worsen prompting patient to
follow-up with his primary care doctor who switched your antibiotic. Erythema tenderness continue to worsen prompting patient's current visit to the ED. Vital signs stable labs unremarkable. X-ray noted no acute acute fracture dislocation foreign
bodies or overt evidence of osteomyelitis. Admitted for treatment severe RLE cellulitis failed outpt treatment.
PLAN:
#RLE cellulitis failed outpt tx
ID eval appreciated cont Cefazolin MINDA compressive wrap
MRSA screen neg, empiric vanc discontinued
Soft tissue US notes approx 3x3x3 cm collection, Surgery eval appreciated CT obtained noted no abscess, no surgical intervention indicated at this time.
Venous duplex RLE 11/15 neg for DVT
XR RLE 11/19 appreciated no acute fx dislocation foreign body, no overt evidence osteo
Tylenol prn
follow blood cultures NGTD
#HTN
cont home Amlodipine Valsartan w/ holding paramters
#HLD
cont home statin
#GERD
cont home PPI
#Morbid Obesity
dvt ppx lovenox
gi ppx protonix
Full Code
I spent a total of 55 minutes with the patient or on the floor. More than 50% of this time involved counseling and coordination of care.
Anticipated Discharge: 24 - 48 hours
Subjective/Interval History
-
Date of Service: November 22, 2023
No acute distress resting comfortably in bed. Reports pain RLE improved at rest, continues to have pain w/ exertion however. Erythema appears decreased from marked margins.
Objective Data
-
Labs:
Laboratory Results
11/22/23
05:54
WBC Pending
Hgb Pending
Hct Pending
Plt Count Pending
Sodium Pending
Potassium Pending
Chloride Pending
Carbon Dioxide Pending
BUN Pending
Creatinine Pending
Glucose Pending
Calcium Pending
Vital Signs:
Vital Signs
Temp Pulse Resp BP Pulse Ox
98.2 F 83 20 147/86 96
11/21/23 23:20 11/21/23 23:20 11/21/23 23:20 11/21/23 23:20 11/21/23 23:20
I&O
11/20/23 11/21/23 11/22/23
06:59 06:59 06:59
Intake Total 480 / 480 1040 / 1040
Output Total 150 / 150
Balance 330 / 330 1040 / 1040
[2023-11-22 06:39] LABS: % Basophils 0.3 % (0-2); % Eosinophils 2.5 % (0-6); % Immature Granulocytes 0.5 % (0-0.5); % Lymphocytes 17.1 % (20.5-51.1); % Monocytes 8.6 % (1.7-9.3); Absolute Eosinophils 0.2 10^3/uL (0-0.7); Absolute Monocytes 0.5 10^3/uL (0.1-0.6); Absolute Neutrophils 4.2 10^3/uL (1.4-6.5); Hematocrit 37.3 % (39.0-52.0); Hemoglobin 12.7 g/dL (13.0-18.0); Mean Corpuscular Hgb 29.4 pg (27.0-31.0); Mean Corpuscular Volume 86.3 fL (80.0-94.0); Mean Platelet Volume 9.5 fL (7.4-10.4); Nucleated Red Blood Cells % 0 % (-); Platelet Count 206 10^3/uL (130-400); Red Blood Cell Count 4.32 10^6/uL (4.70-6.10); Red Cell Dist. Width 13.3 % (11.5-14.5); White Blood Cell Count 5.9 10^3/uL (4.8-10.8)
[2023-11-22 07:06] LABS: Blood Urea Nitrogen 16 mg/dl (9-20); Calcium 9.1 mg/dl (8.4-10.2); Carbon Dioxide 28 mmol/L (22-30); Chloride 106 mmol/L (98-107); Estimated Creatinine Clearance 110 ml/min; Glucose 89 mg/dl (70-99); Magnesium 2.3 mg/dl (1.6-2.3); Potassium 4.5 mmol/L (3.5-5.1); Sodium 141 mmol/L (135-145); eGFR > 60.00
[2023-11-22 07:49] VITALS: BP 140/87
[2023-11-22] MEDS: CRESTOR 10 MG PO (08:40)
[2023-11-22] MEDS: DIOVAN 320 MG PO (08:40)
[2023-11-22] MEDS: ANCEF 10 IV ×3 (08:40→23:40)
[2023-11-22] MEDS: NORVASC 10 MG PO (08:41)
[2023-11-22] MEDS: PROTONIX 40 MG PO (08:41)
[2023-11-22] MEDS: VISBIOME 1 CAP PO (08:41)
--- NOTE | 2023-11-22 10:25 | CM ---
Patient seen bedside, reports no needs to CM at this time. Patient remains on IV antibiotics. CM will continue to follow for all discharge planning needs.
Plan; home no needs anticipated.
--- NOTE | 2023-11-22 11:19 | W.PN.GS2 ---
Addendum entered and electronically signed by Ashkan Parra MD 11/22/23 13:16:
I saw and examined the patient.
The DRY CANS OPERATOR's note was reviewed and I agree with the note.
Comment:
Seen in am with PA.
Patient admits less pain.
Vitals ok. WBC normal.
Leg less red and no fluctuance or crepitus.
CT yesterday without abscess.
Antibiotics should suffice.
Signing off.
Original Note:
Today's Communication / Plan
-
No plans for surgical intervention
Assessment / Plan
-
63 yo male with RLE cellulitis which failed PO abx as outpatient x4-5 days, now on IV agent with improvement in erythema. US with concern for ?small abscess with follow up CT demonstrating edema without abscess. AFVSS. No leukocytosis. Erythema
marked on exam today.
--No need for surgical intervention/I&D
--ABX as per primary team
Surgery to follow peripherally; please call with questions/concerns
Subjective Data
-
Date of Service: November 22, 2023
Patient seen and examined at bedside with Dr. Parra. Notes some improvement to discomfort and erythema to RLE. No fevers overnight.
Objective Data
-
Intake and Output
11/21/23 11/22/23 11/23/23
06:59 06:59 06:59
Intake Total 480 / 480 1520 / 1520
Output Total 150 / 150 200 / 200
Balance 330 / 330 1320 / 1320
Intake:
Oral fluids 480 / 480 1520 / 1520
Output:
Urine, Voided 150 / 150 200 / 200
Other:
Number of approximated MODERATE 1 2
amounts of urine
Number of approximated LARGE 4
amounts of urine
Vital Signs
Temp Pulse Resp BP Pulse Ox
98.6 F 73 18 140/87 95
11/22/23 07:49 11/22/23 07:49 11/22/23 07:49 11/22/23 07:49 11/22/23 07:49
Lab Results
11/22/23 05:54
11/22/23 05:54
Calcium 9.1 mg/dl (8.4-10.2) 11/22/23 05:54
Magnesium 2.3 mg/dl (1.6-2.3) 11/22/23 05:54
Total Bilirubin 0.7 mg/dl (0.2-1.3) 11/20/23 09:15
AST 23 U/L (17-59) 11/20/23 09:15
ALT 24 U/L (0-50) 11/20/23 09:15
Alkaline Phosphatase 87 U/L (38-126) 11/20/23 09:15
Total Protein 6.7 g/dl (6.3-8.2) 11/20/23 09:15
Albumin 3.9 g/dl (3.5-5.0) 11/20/23 09:15
Physical Exam
-
NAD
RLE with erythema starting below knee to ankle, dependent edema. Strong pulses. No fluctuance present, indurated to medial calf/cardenas
[2023-11-22 11:24] LABS: Glycohemoglobin (HgbA1c) 5.6 % (4.0-5.6)
[2023-11-22 12:11] LABS: Uric Acid 5.9 mg/dl (3.5-8.5)
--- NOTE | 2023-11-22 12:54 | CON.ID ---
Consultation
-
Date/Time Consultation Requested: November 22, 2023 1029
Date/Time Consultation Performed: November 22, 2023 1300
Requesting Provider: Dr. Richy Bower
Performing Provider: Dr. Elizabeth Meng
Reason for Consultation: Right lower leg cellulitis failed outpatient treatment
Chief Complaint / Past History
Chief Complaint
Leg swelling and redness
History of Present Illness
63 year old male with hypertension, class III obesity, who noted Thursday morning that there was bruise-like lesion on his right cardenas. He then developed swelling and erythema that progressed up to his knee. He came to the ER on November 15. Venous
ultrasound negative DVT. He was discharged on doxycycline and a Medrol pack. He followed up with his PCP 2 days later who was concerned as the cellulitis was extensive. PCP replaced the Doxycycline with Bactrim and cephalexin. After 2 days on
dual antibiotics, patient did not improve and therefore came back to the hospital on November 19. Lower extremity ultrasound initially showed possible fluid collection. Surgery was consulted who ordered CT of the lower extremity. CT ruled out
abscess. Currently on cephalexin and erythema appears to be improving. He reports bumping his right cardenas against a table approximately 2 months ago. He had a small bruise which eventually resolved. No recent injury or abrasions. He does not do
yard work. No fevers or chills. Diarrhea.
Past History
Additional Past Medical History:
HTN
HLD
IBS
Class III obesity BMI 40
Prostate cancer status post robotic radical prostatectomy, plastic reconstruction of the bladder neck, anterior urethropexy decubitus December 2021
Allergy History:
Penicillins Allergy (Verified 11/20/23 09:46)
Rash as a child- tolerates cephalexin and amoxicillin
Medications Reviewed: Yes
Current Antibiotics:
cefazolin 2g q8, d3
Social History
Tobacco: Non-Smoker
Alcohol: None
Drug: None
Personal:
Living: With Family
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
Family History
Family History: Not Pertinent
Review of Systems
Review of Systems
General: Negative Fever, Chills or Change in Appetite
Cardiovascular: Negative Chest Pain or Dyspnea
Respiratory: Negative Dyspnea or Cough
Gasteroenterology: Other (no diarrhea); Negative Nausea or Vomiting
Genital / Urological: Negative Dysuria or Flank Pain
Endocrine: Negative Weakness
Neurological: Negative Dizziness
All systems: All other systems were reviewed and were negative
Vital Signs
Temp Pulse Resp BP Pulse Ox
98.6 F 73 18 140/87 95
11/22/23 07:49 11/22/23 07:49 11/22/23 07:49 11/22/23 07:49 11/22/23 07:49
Physical Exam
Physical Exam
Constitutional: No Acute Distress and Comfortable
Eyes: No Conjunctival Hemorrhage and Sclera Anicteric
Pulmonary: Clear
Gastrointestinal: Soft, Non Tender, Non Distended and Normal Bowel Sounds
Extremities: Edema (RLE 2+), Erythema (erythema from above ankle to below knee, receding from marked line. ) and Other (RLE midly warm, + dark purpish round induration on distal cardenas without fluctuance)
Lab / Diagnostic Study Results
11/22/23 05:54
11/22/23 05:54
Abs Immat Gran (auto) 0.0 10^3/uL (0-0.05) 11/22/23 05:54
Absolute Neuts (auto) 4.2 10^3/uL (1.4-6.5) 11/22/23 05:54
Absolute Lymphs (auto) 1.0 10^3/uL (1.2-3.4) L 11/22/23 05:54
Absolute Monos (auto) 0.5 10^3/uL (0.1-0.6) 11/22/23 05:54
Absolute Basos (auto) 0.0 10^3/uL (0-0.2) 11/22/23 05:54
Immature Gran % 0.5 % (0-0.5) 11/22/23 05:54
Neutrophils % 71.0 % (42.2-75.2) 11/22/23 05:54
Lymphocytes % 17.1 % (20.5-51.1) L 11/22/23 05:54
Monocytes % 8.6 % (1.7-9.3) 11/22/23 05:54
Eosinophils % 2.5 % (0-6) 11/22/23 05:54
Basophils % 0.3 % (0-2) 11/22/23 05:54
Microbiology Results
Micro:
11/20/23 09:15 Blood Culture - Preliminary
Blood/Venous No Growth in 48 hours- Final report to follow
11/20/23 09:15 Blood Culture - Preliminary
Blood/Venous No Growth in 48 hours- Final report to follow
11/20/23 20:28 Nasal Screen MRSA (PCR) - Final
Nose MRSA not detected - performed by PCR methodology.
11/21/[address]: Marked edematous/inflammatory changes of the soft tissues throughout the right calf, especially distally. No abnormal soft tissue air/gas or air-fluid level to confirm an abnormal focal fluid collection such as an abscess
Assessment / Plan
# Acute non-purulent cellulitis RLE
- No abscess on CT.
- No DVT.
- Appears to be improving on cefazolin. Continue current abx.
- Sherman-wrap leg.
[2023-11-22 16:01] VITALS: BP 147/81
[2023-11-22] MEDS: LOVENOX 40 MG SC (16:20)
[2023-11-22 23:16] VITALS: BP 138/89
[2023-11-23 07:30] VITALS: BP 146/92
[2023-11-23 08:22] LABS: % Basophils 0.7 % (0-2); % Eosinophils 1.5 % (0-6); % Immature Granulocytes 0.8 % (0-0.5); % Lymphocytes 16.2 % (20.5-51.1); % Neutrophils 73.8 % (42.2-75.2); Absolute Basophils 0.1 10^3/uL (0-0.2); Absolute Eosinophils 0.1 10^3/uL (0-0.7); Absolute Immature Granulocytes 0.1 10^3/uL (0-0.05); Absolute Lymphocytes 1.2 10^3/uL (1.2-3.4); Absolute Monocytes 0.5 10^3/uL (0.1-0.6); Absolute Neutrophils 5.2 10^3/uL (1.4-6.5); Hematocrit 42.1 % (39.0-52.0); Hemoglobin 14.1 g/dL (13.0-18.0); Mean Corp Hgb Conc. 33.5 g/dL (33.0-37.0); Mean Corpuscular Hgb 29.3 pg (27.0-31.0); Mean Corpuscular Volume 87.3 fL (80.0-94.0); Mean Platelet Volume 9.6 fL (7.4-10.4); Nucleated Red Blood Cells % 0 % (-); Platelet Count 270 10^3/uL (130-400); Red Blood Cell Count 4.82 10^6/uL (4.70-6.10); Red Cell Dist. Width 13.2 % (11.5-14.5); White Blood Cell Count 7.1 10^3/uL (4.8-10.8)
[2023-11-23 08:50] LABS: Blood Urea Nitrogen 17 mg/dl (9-20); Calcium 9.1 mg/dl (8.4-10.2); Carbon Dioxide 27 mmol/L (22-30); Chloride 104 mmol/L (98-107); Estimated Creatinine Clearance 110 ml/min; Glucose 98 mg/dl (70-99); Magnesium 2.3 mg/dl (1.6-2.3); Potassium 4.2 mmol/L (3.5-5.1); Sodium 139 mmol/L (135-145); eGFR > 60.00
[2023-11-23] MEDS: NORVASC 10 MG PO (08:59)
[2023-11-23] MEDS: DIOVAN 320 MG PO (08:59)
[2023-11-23] MEDS: VISBIOME 1 CAP PO (08:59)
[2023-11-23] MEDS: CRESTOR 10 MG PO (08:59)
[2023-11-23] MEDS: PROTONIX 40 MG PO (08:59)
[2023-11-23] MEDS: ANCEF 10 IV ×2 (09:00→15:00)
--- NOTE | 2023-11-23 11:23 | W.PN.ID1 ---
Date of Service
Date of Service: November 23, 2023
Today's Communication
Transition to high dose cephalexin 1000mg po qid x 10 more days.
Assessment / Plan
# Severe acute non-purulent cellulitis RLE, improving
- No abscess on CT.
- No DVT.
- Continue to improve on cefazolin.
- Transition to high dose cephalexin 1000mg po qid x 10 more days.
- Continue with Sherman-wrap compression and leg elevation.
#Additional Past Medical History:
HTN
HLD
IBS
Class III obesity BMI 40
Prostate cancer status post robotic radical prostatectomy, plastic reconstruction of the bladder neck, anterior urethropexy decubitus December 2021
Chief Complaint
-: Cellulitis
Subjective / Review of Systems
Leg continues to improve.
Vital Signs / Physical Exam
Vital Signs
Vital Signs
Temp Pulse Resp BP Pulse Ox
98.1 F 93 18 146/92 99
11/23/23 07:30 11/23/23 08:59 11/23/23 07:30 11/23/23 08:59 11/23/23 07:30
Physical Exam
Constitutional: No Acute Distress and Comfortable
Extremities: Edema (RLE 2+ improving) and Erythema (RLE decreasing more localized to dark purplish indurated area)
Objective Data
Lab Data
Lab Results
11/23/23 07:26
11/23/23 07:26
Estimated Creat Clear 110 ml/min 11/23/23 07:26
Total Bilirubin 0.7 mg/dl (0.2-1.3) 11/20/23 09:15
AST 23 U/L (17-59) 11/20/23 09:15
ALT 24 U/L (0-50) 11/20/23 09:15
Alkaline Phosphatase 87 U/L (38-126) 11/20/23 09:15
Most recent labs reviewed.
Micro Results:
11/20/23 09:15 Blood Culture - Preliminary
Blood/Venous No Growth in 72 hours- Final report to follow
11/20/23 09:15 Blood Culture - Preliminary
Blood/Venous No Growth in 72 hours- Final report to follow
11/20/23 20:28 Nasal Screen MRSA (PCR) - Final
Nose MRSA not detected - performed by PCR methodology.
11/21/[address]: Marked edematous/inflammatory changes of the soft tissues throughout the right calf, especially distally. No abnormal soft tissue air/gas or air-fluid level to confirm an abnormal focal fluid collection such as an abscess
Care Review
Plan reviewed with: Physician (Dr. Blackwell)
--- NOTE | 2023-11-23 12:59 | W.PN.HOSP.TC ---
Today's Communication/Plan
-
dc home
Assessment / Plan
Assessment / Plan
63 male history hypertension hyperlipidemia GERD morbid obesity prostate cancer status post prostatectomy presents for evaluation right lower extremity erythema tenderness progressively worsening over the past 5 days. Patient reports noting a
lesion there a month ago when he accidentally bumped it resulting in bruising. Evaluated in ED with venous duplex negative for clot. Patient was prescribed oral antibiotic at discharge. Erythema however continue to worsen prompting patient to
follow-up with his primary care doctor who switched your antibiotic. Erythema tenderness continue to worsen prompting patient's current visit to the ED. Vital signs stable labs unremarkable. X-ray noted no acute acute fracture dislocation foreign
bodies or overt evidence of osteomyelitis. Admitted for treatment severe RLE cellulitis failed outpt treatment.
Assessment:
RLE cellulitis
- Soft tissue US notes approx 3x3x3 cm collection, Surgery eval appreciated CT obtained noted no abscess, no surgical intervention indicated at this time.
- failed OP Tx
- improved with IV Ancef
- high dose cephalexin 1000mg po qid x 10 more days per ID
Essential HTN
- continue Amlodipine/Valsartan
HLD
- cont home statin
GERD
- cont home PPI
Morbid Obesity
DVT ppx: Lovenox
Code: Full
More than 30 minutes spent in discharge including
Final examination of the patient
Summarizing hospital stay
Instructions for continuing care to all relevant caregivers
Preparation of discharge records, prescriptions, and referral forms
Total time spent (in minutes): 42
Anticipated Discharge: Today
Subjective/Interval History
-
Date of Service: November 23, 2023
no new complaints at present
Objective Data
-
Labs:
Laboratory Results
11/23/23
07:26
WBC 7.1
Hgb 14.1
Hct 42.1
Plt Count 270 D
Sodium 139
Potassium 4.2
Chloride 104
Carbon Dioxide 27
BUN 17
Creatinine 1.0
Glucose 98
Calcium 9.1
Vital Signs:
Vital Signs
Temp Pulse Resp BP Pulse Ox
98.1 F 93 18 146/92 99
11/23/23 07:30 11/23/23 08:59 11/23/23 07:30 11/23/23 08:59 11/23/23 07:30
I&O
11/22/23 11/23/23 11/24/23
06:59 06:59 06:59
Intake Total 1520 / 1520 1200 / 1200
Output Total 200 / 200
Balance 1320 / 1320 1200 / 1200
Physical Exam
-
General: No Apparent Distress
HEENT: Normocephalic and Atraumatic
Respiratory: Negative Wheezes
Cardiac: Regular Rhythm and S1/S2
GI: Soft and Nontender
Musculoskeletal: No Edema
Skin: Other (RLE swelling erythema tenderness, appears improved)
Neuro: AO x 3
Hematologic / Lymphatic: No Lymphadenopathy
Psych: Calm
Data Reviewed
-
Total Time Spent with Patient (in minutes): 42
Labs: Labs Reviewed by me
--- NOTE | 2023-11-23 13:06 | W.DS.TRANS ---
DC Summary - [facility]
-
Discharge Instructions:
Discharge Diagnosis/Procedures Right LE cellulitis
Diet Regular
Activity As tolerated
Bathing Restrictions None
Instructions:
Stand-Alone Forms:
Changes to Home Medications: No
Discharge Medications:
DC Medications w/original date entered in [facility] [employer]
amlodipine 10 mg tablet 10 mg PO DAILY Blood Pressure 01/20/22
valsartan 320 mg tablet 320 mg PO DAILY Blood Pressure 01/20/22
Lactobac no.2-Bifidobac no.1-S. thermo 112.5 billion cell capsule (Visbiome) 1 cap PO DAILY Supplement 11/20/23
dexlansoprazole 30 mg capsule,biphase delayed release 30 mg PO DAILY Gastrointestinal Issue 11/20/23
rosuvastatin 10 mg tablet 10 mg PO DAILY High Cholesterol 11/20/23
cephalexin 500 mg capsule 1,000 mg (2 x 500 mg) PO QID 10 days #80 caps 11/23/23
Home Medication Changes
Pending Results: No
Total time spent discharging patient (in min): 42
--- NOTE | 2023-11-23 13:12 | CM ---
Md entered order for discharge.
Pt changed to po abx,
will drive him home.
Offered VN he delcined need.
PLAN Home no needs
[2023-11-23 15:32] VITALS: BP 129/63
== END 2023-11-23 15:37 | disposition home or self-care (01) | DRG 603 ==
LOC: 4 EAST ACU 15:08
PROVIDERS: Physician Assistant; ADMITTING PHYSICIAN Internal Medicine; ATTENDING PHYSICIAN Internal Medicine; CONSULT PHYSICIAN Internal Medicine Infectious Disease; CONSULT PHYSICIAN Surgery; EMERGENCY PHYSICIAN Student in an Organized Health Care Education/Training Program; FAMILY PHYSICIAN Physician Assistant Medical
DX: L03.115 Cellulitis of right lower limb (principal); Z68.41 Body mass index [BMI] 40.0-44.9, adult; I10 Essential (primary) hypertension; E66.01 Morbid (severe) obesity due to excess calories; E78.5 Hyperlipidemia, unspecified; K21.9 Gastro-esophageal reflux disease without esophagitis; K58.9 Irritable bowel syndrome, unspecified; M77.31 Calcaneal spur, right foot; Z79.899 Other long term (current) drug therapy; Z85.46 Personal history of malignant neoplasm of prostate; Z90.79 Acquired absence of other genital organ(s); Z88.0 Allergy status to penicillin
CPT/HCPCS: 73590; 73701; 76882; 80048; 80053; 83036; 83735; 84550; 85025; 87040; 87641; 96374; 99284; Q9967